=== PATIENT | male | born 1980 ===

== ENCOUNTER 2018-04-14 10:41 | Emergency (ER) | payer OTHER ==
[2018-04-14 10:54] VITALS: BP 107/69; PULSE 60; RESP 22; TEMP 98.6; O2SAT 100
[2018-04-14] MEDS ORDERED: Oxycodone/Acetaminophen 5/325 mg Tab PO STA (11:12)
[2018-04-14] MEDS ORDERED: Oxycodone/Acetaminophen 5/325 mg Tab ONE (11:17)
--- NOTE | 2018-04-14 12:30 | RAD ---
Date of service: 04/14/2018 PROCEDURE: Radiographs of the chest and bilateral ribs HISTORY: s/p fall r/o fx COMPARISON: None available. TECHNIQUE: Frontal radiograph of the chest and multiple oblique radiographs of the bilateral ribs were obtained. FINDINGS: RIGHT RIBS: Fracture posterior 4th and 5th rib, nondisplaced. LEFT RIBS: No fracture or focal lesion visualized. LUNGS: Clear. PLEURA: No pneumothorax or pleural fluid. CARDIOVASCULAR: Normal sized heart. No pulmonary vascular congestion. OTHER FINDINGS: None. IMPRESSION: Nondisplaced fracture posterior right 4th and 5th rib. No hemothorax/pneumothorax.
--- NOTE | 2018-04-14 12:31 | RAD ---
Date of service: 04/14/2018 PROCEDURE: Radiographs of the Right Shoulder HISTORY: right shoulder pain after fall COMPARISON: No prior. FINDINGS: BONES: No humeral/ scapular fracture appreciated. Minimally displaced fracture right posterior 4th and 5th ribs noted. JOINTS: Normal. Glenohumeral and acromioclavicular joints preserved. No osteoarthritis. SOFT TISSUES: Normal. OTHER FINDINGS: None. IMPRESSION: Fracture right posterior 4th and 5th rib. No other fracture identified.
--- NOTE | 2018-04-14 12:35 | C.PDOC ---
History Of Present Illness 37 y/o male presents to the ED complaining of pain to the right upper back and shoulder s/p fall at work today. Patient states while at work he was standing on an elevated platform and fell backwards onto his right upper back. Patient denies head injury, LOC, neck pain, SOB, chest pain, abdominal pain, dizziness, headache, or other injuries. Time Seen by Provider: 04/14/18 11:00 Chief Complaint (Nursing): Back Pain History Per: Patient History/Exam Limitations: no limitations Onset/Duration Of Symptoms: Hrs Current Symptoms Are (Timing): Still Present Quality Of Discomfort: "Pain" Severity: Severe Exacerbating Factor(s): Movement Past Medical History Reviewed: Historical Data, Nursing Documentation, Vital Signs Vital Signs: Last Vital Signs Temp 98.6 F 04/14/18 10:50 Pulse 60 04/14/18 10:50 Resp 22 04/14/18 10:50 BP 107/69 04/14/18 10:50 Pulse Ox 100 04/14/18 13:44 - Medical History PMH: Hypercholesterolemia Surgical History: No Surg Hx Family History: States: No Known Family Hx - Social History Hx Alcohol Use: Yes Hx Substance Use: No Review Of Systems Constitutional: Negative for: Fever, Chills Eyes: Negative for: Vision Change Cardiovascular: Negative for: Chest Pain Respiratory: Negative for: Cough, Shortness of Breath Gastrointestinal: Negative for: Nausea, Vomiting, Abdominal Pain, Diarrhea Musculoskeletal: Positive for: Shoulder Pain, Back Pain. Negative for: Neck Pain Skin: Negative for: Lesions, Bruising Neurological: Negative for: Weakness, Numbness, Incoordination, Headache, Dizziness Physical Exam - Physical Exam Appears: Well, Non-toxic, In Acute Distress (in moderate to severe pain) Skin: Warm, Dry, No Rash Head: Atraumatic, Normacephalic, No Swelling, No Abrasion, No Laceration Eye(s): bilateral: Normal Inspection, PERRL, EOMI Oral Mucosa: Moist Neck: Normal, Normal ROM, No Midline Cervical Tenderness, No Paracervical Tenderness, No Step Off Deformity, Supple Chest: Symmetrical, No Tenderness Cardiovascular: Rhythm Regular, No Murmur Respiratory: Normal Breath Sounds (with equal breath sounds bilaterally), No Rales, No Rhonchi, No Wheezing Gastrointestinal/Abdominal: Normal Exam, Bowel Sounds, Soft, No Tenderness Back: No Vertebral Tenderness, No Decreased ROM, Other (Significant TTP of the right posterior shoulder and upper thoracic area) Extremity: Normal ROM (with intact ROM of right shoulder), No Tenderness, Capillary Refill (< 2 sec all digits ), No Deformity, Other (No lacerations or abrasions) Extremity: Bilateral: Normal Color And Temperature Pulses: Left Radial: Normal, Right Radial: Normal Neurological/Psych: Oriented x3, Normal Speech, Normal Cognition, Normal Cranial Nerves, No Cerebellar Signs, Normal Motor (5/5 motor strength all ext, 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 : [id number]. Patient Name / ID : RUTHANN BYRNES / [id number]. Exam Date : 04/14/2018 11:31:57 ( Approved ). Study Comment : Sex / Age : M / 37Y. Creator : Chad Zuniga MD. Dictator : Chad Zuniga MD. Oral Pathologist : Charge Lpn : Chda Zuniga MD. Approver2 : Report Date : 04/14/2018 12:26:56. My Comment : . Date of service: 04/14/2018. PROCEDURE: Radiographs of the chest and bilateral ribs. HISTORY: s/p fall r/o fx. COMPARISON: None available. TECHNIQUE: Frontal radiograph of the chest and multiple oblique radiographs of the bilateral ribs were obtained. FINDINGS: RIGHT RIBS: Fracture posterior 4th and 5th rib, nondisplaced. LEFT RIBS: No fracture or focal lesion visualized. LUNGS: Clear. PLEURA: No pneumothorax or pleural fluid. CARDIOVASCULAR: Normal sized heart. No pulmonary vascular congestion. OTHER FINDINGS: None. IMPRESSION: Nondisplaced fracture posterior right 4th and 5th rib. No hemothorax/pneumothorax. XR R shoulder X-Ray: Viewed By Me, Read By Radiologist Interpretation: Accession No. : [id number]. Patient Name / ID : RUTHANN BYRNES / [id number]. Exam Date : 04/14/2018 11:24:15 ( Approved ). Study Comment : Sex / Age : M / 37Y. Creator : Chad Zuniga MD. Dictator : Chad Zuniga MD. Oral Pathologist : Charge Lpn : Chad Zuniga MD. Approver2 : Report Date : 04/14/2018 12:29:26. My Comment : . Date of service: 04/14/2018. PROCEDURE: Radiographs of the Right Shoulder. HISTORY: right shoulder pain after fall. COMPARISON: No prior. FINDINGS: BONES: No humeral/ scapular fracture appreciated. Minimally displaced fracture right posterior 4th and 5th ribs noted. JOINTS: Normal. Glenohumeral and acromioclavicular joints preserved. No osteoarthritis. SOFT TISSUES: Normal. OTHER FINDINGS: None. IMPRESSION: Fracture right posterior 4th and 5th rib. No other fracture identified. Progress Note: Patient given PO Percocet for pain. Xrays of right shoulder and chest/ribs ordered and reviewed. Patient has nondisplaced rib fractures (4,5) without PTX. Reevaluation Time: 12:40 Reassessment Condition: Improved (On reassessment, patient is resting comfortably and states his pain has improved. Patient placed in right shoulder sling for comfort. He was given work note and instructed to follow up with PMD/ clinic in 1-2 days. He understands he should return to ED if symptoms worsen.) Disposition Counseled Patient/Family Regarding: Studies Performed, Diagnosis, Need For Followup, Rx Given - Disposition Referrals: [facility] [Outside] Disposition: HOME/ ROUTINE Disposition Time: 12:40 Condition: STABLE Additional Instructions: FOLLOW UP WITH YOUR DOCTOR OR MEDICAL CLINIC IN 1-2 DAYS USE MEDICATIONS FOR PAIN NEEDED RETURN TO EMERGENCY ROOM IF SYMPTOMS WORSEN SEGUIMIENTO CON RAYMOND MDGENA O CLTACOSA MDICA EN 1-2 PARSONS USE MEDICAMENTOS PARA EL DOLOR SEGN SEA NECESARIO REGRESE AL CHAVA DE EMERGENCIA SI LOS SNTOMAS EMPEORAN Prescriptions: Naproxen 375 mg PO BID PRN #20 tablet PRN Reason: pain oxyCODONE/Acetaminophen [Percocet 5/325 mg Tab] 1 tab PO QID PRN #15 tab PRN Reason: Pain Instructions: Rib Fracture (DC) Forms: [employer] (Latvian), Work Excuse Print Language: SOMALI - POA Present On Arrival: Falls Or Trauma - Clinical Impression Clinical Impression: Right rib fracture - Scribe Statement The provider has reviewed the documentation as recorded by the Scribe (Janna Nuñez) Provider Attestation: All medical record entries made by the Scribe were at my direction and personally dictated by me. I have reviewed the chart and agree that the record accurately reflects my personal performance of the history, physical exam, medical decision making, and the department course for this patient. I have also personally directed, reviewed, and agree with the discharge instructions and disposition.
== END 2018-04-14 13:41 | disposition home or self-care (01) ==
LOC: C.ER 10:41
DX: S22.41XA Multiple fractures of ribs, right side, initial encounter for closed fracture (principal); W19.XXXA Unspecified fall, initial encounter; Y92.89 Other specified places as the place of occurrence of the external cause; Y99.0 Civilian activity done for income or pay